=== PATIENT | male | born 2000 | race Caucasian/White ===

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

== ENCOUNTER 2021-02-02 20:36 | Emergency (ER) | payer MEDICAID, SELFPAY ==
[~2021-02-02] VITALS: Ht 165.1 cm; Wt 74.8 kg
[~2021-02-02 20:36] MED LIST changes: +HYDR-3917 PO; +IBUP-1971 PO
[2021-02-02 20:40] VITALS: BP_SYST 129; BP_SYST 131
[2021-02-02 21:19] LABS: BASOPHILS # (AUTO) 0.2 K/uL (0.0-0.2); BASOPHILS % (AUTO) 1.3 % (0.0-2.0); EOSINOPHILS # (AUTO) 0.1 K/uL (0.0-0.4); EOSINOPHILS % (AUTO) 0.4 % (0.0-4.0); HEMATOCRIT 42.9 % (36-54); HEMOGLOBIN 14.9 g/dL (14.0-18.0); LYMPHOCYTES # (AUTO) 1.6 K/uL (1.0-5.5); LYMPHOCYTES % (AUTO) 11.1 % (20.5-51.5); MEAN CORPUSCULAR HEMOGLOBIN 30 pg (27-31); MEAN CORPUSCULAR HGB CONC 35 % (32-36); MEAN CORPUSCULAR VOLUME 85 fL (79.0-98.0); MONOCYTES # (AUTO) 0.6 K/uL (0.0-1.0); NEUTROPHILS # (AUTO) 12.1 K/uL (1.8-7.7); NEUTROPHILS % (AUTO) 83.2 % (40.0-70.0); PLATELET COUNT (AUTO) 297 K/uL (130-430); RED BLOOD CELL COUNT(AUTO) 5.06 MIL/uL (4.2-6.2); WHITE BLOOD COUNT (AUTO) 14.5 K/uL (4.5-11.0)
[2021-02-02 22:00] LABS: POTASSIUM 3.4 mmol/L (3.5-5.1)
[2021-02-02 22:01] LABS: ALBUMIN 4.1 g/dL (3.4-4.8); CALCIUM 9.9 mg/dL (8.4-11.0); CREATININE 1.25 mg/dL (0.55-1.30); TOTAL BILIRUBIN 0.4 mg/dL (0.0-1.0)
[2021-02-03] MEDS ORDERED: NACL 0.9% 1,000 ML IV ONE (02:00)
[2021-02-03 02:45] LABS: BILIRUBIN,URINE NEGATIVE (NEGATIVE); BLOOD, URINE NEGATIVE (NEGATIVE); CLARITY/URINE CLEAR (CLEAR); COLOR,URINE YELLOW (YELLOW); GLUCOSE,URINE NEGATIVE (NEGATIVE); KETONES,URINE 2+ (NEGATIVE); LEUKOCYTE ESTERASE ,URINE NEGATIVE (NEGATIVE); NITRITE, URINE NEGATIVE (NEGATIVE); PROTEIN URINE NEGATIVE (NEGATIVE)
[2021-02-03 03:02] LABS: CALCIUM 8.2 mg/dL (8.4-11.0); CREATININE 0.95 mg/dL (0.55-1.30); POTASSIUM 3.4 mmol/L (3.5-5.1)
[2021-02-03 03:15] LABS: BARBITURATE, URINE NEGATIVE (NEG <=200); BENZODIAZEPINE, URINE NEGATIVE (NEG <=150); CANNABINOID, URINE POSITIVE (NEG <=50); COCAINE, URINE NEGATIVE (NEG <=150); METHAMPHETAMINES SCREEN,URINE NEGATIVE (NEG <=500); URINE AMPHETAMINE NEGATIVE (NEG <=500); URINE METHADONE NEGATIVE (NEG <=200)
[2021-02-03 03:16] LABS: OPIATE, URINE NEGATIVE (NEG <=100); PHENCYCLIDINE SCREEN,URINE NEGATIVE (NEG <=25); UR TRICYCLIC ANTIDEPRESSANTS NEGATIVE (NEG <=300); URINE OXYCODONE SCREEN NEGATIVE (NEG <=100); URINE PROPOXYPHENE SCREEN NEGATIVE (NEG <=300)
[2021-02-03 03:21] LABS: ALBUMIN 3.6 g/dL (3.4-4.8); TOTAL BILIRUBIN 0.4 mg/dL (0.0-1.0)
[2021-02-03] MEDS ORDERED: LORazepam 2 MG/ML VIAL ONE (03:42)
[2021-02-03] MEDS ORDERED: LORazepam 2 MG/ML VIAL IVP ONE (03:45)
[2021-02-03 09:20] VITALS: BP_SYST 131
== END 2021-02-03 09:20 | disposition home or self-care (01) ==
LOC: SED 20:36
DX: T39.1X2A Poisoning by 4-Aminophenol derivatives, intentional self-harm, initial encounter (principal); F41.9 Anxiety disorder, unspecified; Z79.899 Other long term (current) drug therapy; Z20.822 Contact with and (suspected) exposure to COVID-19; Y92.89 Other specified places as the place of occurrence of the external cause
CPT/HCPCS: 36415; 71045; 80053; 80307; 81003; 85025; 87426; 93005; 96361; 96374; 99285; G0480; G0481; G0482; J2060; J7030

== ENCOUNTER 2022-09-08 19:08 | Emergency (ER) | payer OTHER, MEDICAID ==
[2022-09-08 19:30] VITALS: BP_SYST 128
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
--- NOTE | 2022-09-08 19:40 | NUR ---
Dr Chadwick evaluating patient at bedside
--- NOTE | 2022-09-08 19:45 | NUR ---
REPORT GIVEN TO DR KING. PT IN WR
[2022-09-08] MEDS ORDERED: MELA10CA PO (20:27)
[2022-09-08] MEDS ORDERED: LORA-259 PO (20:27)
[2022-09-08] MEDS ORDERED: ZALE5CAP2 PO (20:30)
[2022-09-08] MEDS ORDERED: LORazepam 1 MG TABLET PO ONE (20:45)
[2022-09-08 20:59] VITALS: BP_SYST 128
--- NOTE | 2022-09-08 21:00 | NUR ---
Patient given written and verbal discharge instructions and verbalizes understanding. ER MD discussed with patient the results and treatment provided. Patient in stable condition. ID arm band removed. Rx of Ativan, Melatonin, Zaleplon given. Patient educated on pain management and to follow up with PMD. Pain Scale 0/10 . Opportunity for questions provided and answered. Medication side effect fact sheet provided.
== END 2022-09-08 20:59 | disposition home or self-care (01) ==
LOC: SED 19:08
DX: F41.9 Anxiety disorder, unspecified (principal); G47.00 Insomnia, unspecified; Z79.899 Other long term (current) drug therapy
CPT/HCPCS: 99283

== ENCOUNTER 2022-09-10 17:06 | Emergency (ER) | payer MEDICAID, OTHER ==
[~2022-09-10] VITALS: Ht 170.2 cm; Wt 74.8 kg
[~2022-09-10 17:06] MED LIST changes: +LORA-259 PO; +MELA10CA PO; +ZALE5CAP2 PO
[2022-09-10 17:20] VITALS: BP_SYST 124
--- NOTE | 2022-09-10 17:30 | NUR ---
Patient to ER bed 5 to gown for evaluation. Side rails up. Report given to ELIZABETH FAROOQ.
--- NOTE | 2022-09-10 17:40 | NUR ---
PT BIB SELF WITH C/O OF PAIN IN THE RIGHT KNEE POST FALL DOWN THE STAIRS.PT RIGHT KNEE DOES HAVE ERYTHEMA AND EDEMA. PT ALSO HAS PAIN WITH MOVEMENT. PT DENIES ANY HEAD TRAUMA AND STATES HIS KNEE ONLY HURTS. PT STATES 9 OUT OF TEN PAIN. PT DENIES SOB, N/V/D AND ANY URINARY ISSUES. PT HAS A HISTORY OF ANXIETY AND TAKES ATIVAN 1MG PO DAILY. PT IN ROOM 5 ON THE MONITOR
--- NOTE | 2022-09-10 17:40 | NUR ---
ER at bedside examining patient.
[2022-09-10] MEDS ORDERED: MORPHINE 4 MG INJ. 4 MG/ML VIAL IVP ONE ×2 (18:00→21:30)
[2022-09-10] MEDS ORDERED: PIPERACILLIN/TAZO 3.375 GM in NS 50 ML IV ONE (18:00)
[2022-09-10] MEDS ORDERED: NACL 0.9% 1,000 ML IV ONE (18:00)
[2022-09-10] MEDS ORDERED: ONDANSETRON HCL 4 MG/2 ML VIAL IVP ONE (18:00)
[2022-09-10] MEDS ORDERED: LIDOCAINE 1% 10 MG/ML, 20 ML MDV INJ ONE (18:00)
--- NOTE | 2022-09-10 18:18 | NUR ---
LAB AT BEDSIDE WITH PT.
--- NOTE | 2022-09-10 18:29 | NUR ---
# 20 gauge angiocath placed to RAC. Use of asceptic technique. Opsite placed over site. Blood return noted. Blood for lab drawn from site. Flushed with 10 cc of normal saline. No evidence of infiltration noted. Patient tolerated well.
--- NOTE | 2022-09-10 18:29 | NUR ---
Medicated per MD orders. IVF infusing with no s/s of infiltration at this time. Will cont to monitor
[2022-09-10 18:33] LABS: BASOPHILS % (AUTO) 0.5 % (0.0-2.0); EOSINOPHILS # (AUTO) 0.4 K/uL (0.0-0.4); EOSINOPHILS % (AUTO) 4.8 % (0.0-4.0); HEMATOCRIT 43.6 % (36-54); HEMOGLOBIN 14.8 g/dL (14.0-18.0); LYMPHOCYTES # (AUTO) 2.4 K/uL (1.0-5.5); LYMPHOCYTES % (AUTO) 26.2 % (20.5-51.5); MEAN CORPUSCULAR HEMOGLOBIN 30 pg (27-31); MEAN CORPUSCULAR HGB CONC 34 % (32-36); MEAN CORPUSCULAR VOLUME 89 fL (79.0-98.0); MONOCYTES # (AUTO) 0.9 K/uL (0.0-1.0); MONOCYTES % (AUTO) 9.9 % (1.7-9.3); NEUTROPHILS # (AUTO) 5.5 K/uL (1.8-7.7); NEUTROPHILS % (AUTO) 58.6 % (40.0-70.0); PLATELET COUNT (AUTO) 272 K/uL (130-430); RED BLOOD CELL COUNT(AUTO) 4.89 MIL/uL (4.2-6.2); RED CELL DISTRIBUTION WIDTH 13.6 % (9.0-15.0); WHITE BLOOD COUNT (AUTO) 9.3 K/uL (4.8-10.8)
[2022-09-10 18:44] LABS: ANION GAP 3 (5-15); CALCIUM 8.4 mg/dL (8.4-11.0); CHLORIDE 102 mmol/L (98-107); CREATININE 0.91 mg/dL (0.55-1.30); GFR AFRICAN AMERICAN 135 mL/min (>90); GLUCOSE 114 mg/dL (70-99); UREA NITROGEN, BLOOD 15 mg/dL (8-21)
[2022-09-10 18:50] LABS: ALANINE AMINOTRANSFERASE 52 U/L (12-78); ALBUMIN 4.1 g/dL (3.4-4.8); ASPARTATE AMINOTRANSFERASE 24 U/L (10-37); TOTAL BILIRUBIN 0.3 mg/dL (0.0-1.0)
[2022-09-10] MEDS ORDERED: PIPERACILLIN/TAZOBACTAM 3.375 GM/VIAL (ZOSYN) IV ONE (18:51)
--- NOTE | 2022-09-10 19:17 | NUR ---
REPORT GIVEN TO CAPRI GONZALEZ.
[2022-09-10] MEDS ORDERED: KETOROLAC TROMETHAMINE 30 MG VIAL IVP ONE (20:00)
[2022-09-10] MEDS ORDERED: CEPH-548 PO (22:05)
[2022-09-10] MEDS ORDERED: IBUP-1971 PO (22:05)
[2022-09-10] MEDS ORDERED: ONDA-8 TL (22:05)
[2022-09-10] MEDS ORDERED: TRAM50TA2 PO (22:05)
[2022-09-10 22:32] VITALS: BP_SYST 127
--- NOTE | 2022-09-10 22:33 | NUR ---
Patient given written and verbal discharge instructions and verbalizes understanding. ER MD discussed with patient the results and treatment provided. Patient in stable condition. ID arm band removed. IV catheter removed intact and dressing applied, no active bleeding. Rx of cephalexin, ibuprofen, zofran, tramadol given. Patient educated on pain management and to follow up with PMD. Pain Scale . Opportunity for questions provided and answered. Medication side effect fact sheet provided.
== END 2022-09-10 22:32 | disposition home or self-care (01) ==
LOC: SED 17:06
DX: L03.115 Cellulitis of right lower limb (principal); M25.561 Pain in right knee; Z79.899 Other long term (current) drug therapy
CPT/HCPCS: 99285; 20610; 96365; 96375; 96361; 80053; 85025; 87040; 84484; 36415; 93005; 73564; 96376; 82945; 84157; 83605; 87070; J1885; J2001; J2405; J2543; J2270; J7030

== ENCOUNTER 2022-09-12 09:50 | Emergency (ER) | payer MEDICAID ==
[~2022-09-12] VITALS: Ht 167.6 cm; Wt 72.6 kg
[~2022-09-12 09:50] MED LIST changes: +CEPH-548 PO; +TRAM50TA2 PO
[2022-09-12 10:04] VITALS: BP_SYST 125
--- NOTE | 2022-09-12 10:08 | NUR ---
Patient to ER bed 07 to gown for evaluation. Side rails up. Report given to Humera FAROOQ.
[2022-09-12] MEDS ORDERED: VANCOMYCIN HCL 1,000 MG in NS 250 ML IV ONE (10:15)
[2022-09-12] MEDS ORDERED: NACL 0.9% 1,000 ML IV ONE (10:15)
[2022-09-12] MEDS ORDERED: KETOROLAC TROMETHAMINE 30 MG VIAL IVP ONE (10:15)
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
[2022-09-12] MEDS ORDERED: VANCOMYCIN HCL 1000 MG/VIAL IV ONE (10:27)
[2022-09-12 10:53] LABS: BASOPHILS % (AUTO) 0.3 % (0.0-2.0); EOSINOPHILS # (AUTO) 0.5 K/uL (0.0-0.4); EOSINOPHILS % (AUTO) 5.5 % (0.0-4.0); HEMATOCRIT 41.3 % (36-54); HEMOGLOBIN 14.1 g/dL (14.0-18.0); LYMPHOCYTES # (AUTO) 2.2 K/uL (1.0-5.5); LYMPHOCYTES % (AUTO) 25.8 % (20.5-51.5); MEAN CORPUSCULAR HEMOGLOBIN 30 pg (27-31); MEAN CORPUSCULAR HGB CONC 34 % (32-36); MEAN CORPUSCULAR VOLUME 89 fL (79.0-98.0); MONOCYTES # (AUTO) 0.7 K/uL (0.0-1.0); MONOCYTES % (AUTO) 7.9 % (1.7-9.3); NEUTROPHILS # (AUTO) 5.2 K/uL (1.8-7.7); NEUTROPHILS % (AUTO) 60.5 % (40.0-70.0); PLATELET COUNT (AUTO) 249 K/uL (130-430); RED BLOOD CELL COUNT(AUTO) 4.65 MIL/uL (4.2-6.2); RED CELL DISTRIBUTION WIDTH 13.6 % (9.0-15.0); WHITE BLOOD COUNT (AUTO) 8.6 K/uL (4.8-10.8)
[2022-09-12 11:11] LABS: CALCIUM 8.7 mg/dL (8.4-11.0); CREATININE 1.02 mg/dL (0.55-1.30)
[2022-09-12 11:16] LABS: ALBUMIN 3.9 g/dL (3.4-4.8); TOTAL BILIRUBIN 0.6 mg/dL (0.0-1.0)
[2022-09-12 11:44] LABS: BILIRUBIN,URINE NEGATIVE (NEGATIVE); BLOOD, URINE NEGATIVE (NEGATIVE); CLARITY/URINE CLEAR (CLEAR); COLOR,URINE YELLOW (YELLOW); GLUCOSE,URINE NEGATIVE (NEGATIVE); KETONES,URINE NEGATIVE (NEGATIVE); LEUKOCYTE ESTERASE ,URINE NEGATIVE (NEGATIVE); NITRITE, URINE NEGATIVE (NEGATIVE); PH,URINE 6.5 (5.0-8.0); PROTEIN URINE NEGATIVE (NEGATIVE)
--- NOTE | 2022-09-12 14:14 | NUR ---
iv removed from L AC, angiocath intact. bleeding controlled and no complications noted. discharge instructions reviewed with pt, pt verbalized understanding and denied any questions. pt offered wheelchair assistance, denied. pt ambulated from room 7 to ed exit with steady gait.
== END 2022-09-12 14:14 | disposition home or self-care (01) ==
LOC: SED 09:50
DX: L03.115 Cellulitis of right lower limb (principal); M25.561 Pain in right knee; Z76.5 Malingerer [conscious simulation]; Z79.899 Other long term (current) drug therapy
CPT/HCPCS: 99285; 96365; 73700; 71045; 96366; 96375; 80053; 85025; 87040; 36415; 76376; 83605; 81003; J1885; J3370

== ENCOUNTER 2022-10-19 19:46 | Emergency (ER) | payer MEDICAID ==
[~2022-10-19] VITALS: Ht 167.6 cm; Wt 72.6 kg
[2022-10-19 20:36] VITALS: BP_SYST 119; PULSE 87; RESP 18; TEMP 98.5; O2SAT 97
[2022-10-19 21:19] LABS: BASOPHILS # (AUTO) 0.1 K/uL (0.0-0.2); BASOPHILS % (AUTO) 0.3 % (0.0-2.0); EOSINOPHILS # (AUTO) 0.2 K/uL (0.0-0.4); EOSINOPHILS % (AUTO) 1.5 % (0.0-4.0); HEMATOCRIT 43.2 % (36-54); HEMOGLOBIN 14.3 g/dL (14.0-18.0); LYMPHOCYTES # (AUTO) 2.6 K/uL (1.0-5.5); LYMPHOCYTES % (AUTO) 16.2 % (20.5-51.5); MEAN CORPUSCULAR HEMOGLOBIN 29 pg (27-31); MEAN CORPUSCULAR HGB CONC 33 % (32-36); MEAN CORPUSCULAR VOLUME 88 fL (79.0-98.0); MONOCYTES # (AUTO) 1.5 K/uL (0.0-1.0); MONOCYTES % (AUTO) 9.1 % (1.7-9.3); NEUTROPHILS # (AUTO) 11.7 K/uL (1.8-7.7); NEUTROPHILS % (AUTO) 72.9 % (40.0-70.0); PLATELET COUNT (AUTO) 307 K/uL (130-430); RED BLOOD CELL COUNT(AUTO) 4.91 MIL/uL (4.2-6.2); RED CELL DISTRIBUTION WIDTH 13.1 % (9.0-15.0); WHITE BLOOD COUNT (AUTO) 16.1 K/uL (4.8-10.8)
[2022-10-19 21:32] LABS: CALCIUM 8.8 mg/dL (8.4-11.0); CREATININE 1.09 mg/dL (0.55-1.30)
[2022-10-19 21:37] LABS: TOTAL BILIRUBIN 0.5 mg/dL (0.0-1.0)
[2022-10-19 21:47] LABS: BARBITURATE, URINE NEGATIVE (NEG <=200); BENZODIAZEPINE, URINE POSITIVE (NEG <=150); CANNABINOID, URINE POSITIVE (NEG <=50)
[2022-10-19 21:48] LABS: COCAINE, URINE NEGATIVE (NEG <=150); METHAMPHETAMINES SCREEN,URINE NEGATIVE (NEG <=500); OPIATE, URINE NEGATIVE (NEG <=100); PHENCYCLIDINE SCREEN,URINE NEGATIVE (NEG <=25); URINE AMPHETAMINE NEGATIVE (NEG <=500); URINE METHADONE NEGATIVE (NEG <=200); URINE OXYCODONE SCREEN NEGATIVE (NEG <=100); URINE PROPOXYPHENE SCREEN NEGATIVE (NEG <=300)
[2022-10-19 21:49] LABS: UR TRICYCLIC ANTIDEPRESSANTS NEGATIVE (NEG <=300)
[2022-10-19 22:11] VITALS: BP_SYST 119; PULSE 87; RESP 18; TEMP 98.5; O2SAT 97
== END 2022-10-19 22:11 | disposition home or self-care (01) ==
LOC: SED 19:46
DX: T40.411A Poisoning by fentanyl or fentanyl analogs, accidental (unintentional), initial encounter (principal); R20.0 Anesthesia of skin; R56.9 Unspecified convulsions; Z79.899 Other long term (current) drug therapy; Y92.89 Other specified places as the place of occurrence of the external cause
CPT/HCPCS: 36415; 70450-TC; 76376; 80053; 80307; 85025; 99284

== ENCOUNTER 2022-10-27 10:17 | Emergency (ER) | payer MEDICAID ==
[~2022-10-27] VITALS: Ht 167.6 cm; Wt 70.3 kg
[2022-10-27 10:17] VITALS: BP_SYST 130; PULSE 77; RESP 18; TEMP 98.2; O2SAT 96
--- NOTE | 2022-10-27 10:17 | NUR ---
BROUGHT BACK TO BED #4 AND TRIAGED. REPORT GIVEN TO WAYNE
--- NOTE | 2022-10-27 10:24 | NUR ---
PT STATES LAST NIGHT AFTER HAVING ANXIETY/PANIC ATTACK AND HAVING A LOT OF STRESS WITH WORK/FAMILY/GIRLFRIEND, TODAY STATES HE IS UNABLE TO USE HIS LEFT ARM. STATES NUMBNESS TO LEFT SIDE OF FACE.
[2022-10-27] MEDS ORDERED: LORA-259 PO (10:30)
--- NOTE | 2022-10-27 10:55 | NUR ---
In ER bed 4 C/O Anxiety and being unable to use L arm
--- NOTE | 2022-10-27 11:05 | NUR ---
Patient given written and verbal discharge instructions and verbalizes understanding. ER MD discussed with patient the results and treatment provided. Patient in stable condition. ID arm band removed. Rx of ATIVAN given. Patient educated on pain management and to follow up with PMD. Pain Scale 0/10. Opportunity for questions provided and answered. Medication side effect fact sheet provided.
== END 2022-10-27 11:05 | disposition home or self-care (01) ==
LOC: SED 10:17
DX: F41.9 Anxiety disorder, unspecified (principal); R20.0 Anesthesia of skin; Z79.899 Other long term (current) drug therapy
CPT/HCPCS: 99283

== ENCOUNTER 2022-11-07 07:21 | Emergency (ER) | payer MEDICAID ==
[~2022-11-07] VITALS: Ht 167.6 cm; Wt 71.2 kg
[2022-11-07 07:38] VITALS: BP_SYST 115; PULSE 115; RESP 20; TEMP 97.8; O2SAT 97
--- NOTE | 2022-11-07 07:40 | NUR ---
Patient to ER bed 5 to gown for evaluation. Side rails up. Report given to Doron FAROOQ.
--- NOTE | 2022-11-07 07:41 | NUR ---
PT bib self awake and alert aox4, no sob or distress. PT C/O PANIC ATTACK SINCE YESTERDAY. PT STATES PALIPATION, SOB, ANXIETY. PT DENIES N/V. PT HAS HX OF ANXIETY AND DEPRESSION. PT O2 WAS 98% ON RA.
--- NOTE | 2022-11-07 07:43 | NUR ---
ER at bedside examining patient.
[2022-11-07] MEDS ORDERED: LORazepam 1 MG TABLET PO ONE (07:45)
[2022-11-07] MEDS ORDERED: LORA-259 PO (08:32)
[2022-11-07 08:54] VITALS: BP_SYST 115; PULSE 74; RESP 17; TEMP 97.3; O2SAT 98
--- NOTE | 2022-11-07 08:54 | NUR ---
Patient given written and verbal discharge instructions and verbalizes understanding. ER MD DR QUINONEZ discussed with patient the results and treatment provided. Patient in stable condition. ID arm band removed. Rx of ATIVAN given. Patient educated on pain management and to follow up with PMD. Pain Scale 0/10. Opportunity for questions provided and answered. Medication side effect fact sheet provided.
== END 2022-11-07 08:54 | disposition home or self-care (01) ==
LOC: SED 07:21
DX: F41.9 Anxiety disorder, unspecified (principal); R07.9 Chest pain, unspecified; Z79.899 Other long term (current) drug therapy
CPT/HCPCS: 71045; 93005; 99283

== ENCOUNTER 2022-11-10 12:05 | Emergency (ER) | payer MEDICAID ==
[~2022-11-10] VITALS: Ht 167.6 cm; Wt 70.8 kg
[2022-11-10 12:09] VITALS: BP_SYST 117; PULSE 101; RESP 18; TEMP 98.3; O2SAT 97
--- NOTE | 2022-11-10 13:15 | NUR ---
Pt brought by self, ambulatory, A&Ox4, pt presents to ER with anxiety, insomnia, states he luis carlos taking Ativan but he discontinued medication since it was not helping, skin pink and warm, respirations even and unlabored.
--- NOTE | 2022-11-10 13:28 | NUR ---
ER at bedside examining patient.
[2022-11-10 13:29] VITALS: BP_SYST 117; PULSE 101; RESP 18; TEMP 98.3; O2SAT 97
--- NOTE | 2022-11-10 13:29 | NUR ---
Patient given written and verbal discharge instructions and verbalizes understanding. ER MD discussed with patient the results and treatment provided. Patient in stable condition. ID arm band removed. Opportunity for questions provided and answered. Medication side effect fact sheet provided.
== END 2022-11-10 13:29 | disposition home or self-care (01) ==
LOC: SED 12:05
DX: F41.9 Anxiety disorder, unspecified (principal); F13.20 Sedative, hypnotic or anxiolytic dependence, uncomplicated; Z79.899 Other long term (current) drug therapy
CPT/HCPCS: 99281

== ENCOUNTER 2022-12-13 17:33 | Emergency (ER) | payer MEDICAID ==
[~2022-12-13] VITALS: Ht 167.6 cm; Wt 70.3 kg
[2022-12-13 17:47] VITALS: BP_SYST 140; PULSE 117; RESP 16; TEMP 98.4; O2SAT 96
[2022-12-13] MEDS ORDERED: ALPRAZolam 0.25 MG TABLET PO ONE (18:45)
[2022-12-13] MEDS ORDERED: ALPR0.5T PO (20:11)
[2022-12-13 20:20] VITALS: BP_SYST 132; PULSE 97; RESP 18; TEMP 98.4; O2SAT 97
== END 2022-12-13 20:20 | disposition home or self-care (01) ==
LOC: SED 17:33
DX: F41.9 Anxiety disorder, unspecified (principal); G47.00 Insomnia, unspecified; Z79.899 Other long term (current) drug therapy
CPT/HCPCS: 99283